=== PATIENT | female | born 1970 | race Caucasian/White ===

== ENCOUNTER 2017-03-29 09:44 | Emergency (ER) | payer BC ==
--- NOTE | ~2017-03-29 | ER ---
[facility]GE[facility] 46 Y [address] ROOM: [place] [address] LOCATION: ED ADMIT DATE: 03/29/2017 ER/Outpatient Report DISCHARGE DATE: 03/29/2017 FAMILY PHYSICIAN: Sven Chan MD ATTENDING PHYSICIAN: Jared Iqbal TIME OF ARRIVAL: 0944 hours. TIME OF EVALUATION: 1000 hours. CHIEF COMPLAINT: Diarrhea. HISTORY OF PRESENT ILLNESS: The patient is a 46-year-old female who presents to the emergency department today with a chief complaint of diarrhea. It is started on 03/25. She does report she has been feeling dizzy since. She has had multiple watery stools. Denies any blood. She denies any recent antibiotic exposure. Denies any nausea or vomiting. Denies any fevers or chills. Does felt like she was lightheaded. She was started on Flagyl on Wednesday. No sick contacts. Does have a crampy type abdominal pain. Denies any urinary symptoms. No vaginal bleeding. No vaginal discharge. PAST MEDICAL HISTORY: None. PAST SURGICAL HISTORY: Tubal and neck fusion. SOCIAL HISTORY: The patient smokes a pack every 3 days. Denies any alcohol or illicit drug use. ALLERGIES: NO KNOWN DRUG ALLERGIES. MEDICATIONS: Please see list. PRIMARY CARE DOCTOR: Sven Chan MD REVIEW OF SYSTEMS: [facility]GE: 46 Y [address] ROOM: [place] [address] LOCATION: [facility] ADMIT DATE: 03/29/2017 ER/Outpatient Report DISCHARGE DATE: 03/29/2017 FAMILY PHYSICIAN: Sven Chan MD ATTENDING PHYSICIAN: Jared Iqbal All systems are reviewed by myself and negative with the exception of those discussed in HPI and past medical history. PHYSICAL EXAMINATION: VITAL SIGNS: Weight 55.8 kg, blood pressure 140/77, pulse 85, respiratory rate 20, temperature 97.4, oxygen saturation 97% on room air. GENERAL: The patient is a 46-year-old female, appears in stated age, in no acute distress at this time. HEENT: Head normocephalic, atraumatic. Pupils are equal, round, and reactive to light. Mucous membranes are moist. NECK: Supple. There is no nuchal rigidity. CARDIOVASCULAR: Regular rate and rhythm. No murmurs, rubs, or gallops. LUNGS: Clear to auscultation bilaterally. No wheezes, rales, or rhonchi. ABDOMEN: Soft, nontender, and nondistended. No rebound, rigidity, or guarding. MUSCULOSKELETAL: The patient moves all 4 extremities. SKIN: Warm and dry. LABORATORY DATA AND X-RAYS: CBC is unremarkable. CMP is unremarkable. Lactate is normal. LFTs normal. Lipase is normal. Fecal WBCs are negative. Occult blood is negative. Procalcitonin is negative. C diff is negative. Ova and parasites are negative. IMPRESSION: 1. Diarrheal illness. 2. Moderate dehydration. 4. Initial visit. EMERGENCY DEPARTMENT COURSE: The patient was brought back to the examination room. Seen and evaluated by myself. IV is established. Laboratory analysis and imaging are obtained as described above. The patient is given 2 L of normal saline IV. I have discussed results with the patient. I have reassessed the patient's abdominal exam. She continues to have a nonsurgical abdominal exam at this time. I do feel she is safe for outpatient evaluation and treatment. I have written a prescription for ciprofloxacin for home as well as Lomotil. I have discussed follow up with Dr. Chan in 2-3 days for re-evaluation. I have discussed return to care instructions including worsening symptoms or other concerns. Return to the emergency department as soon as possible. The patient agreeable without further questions. DISPOSITION: The patient discharged home in good condition. PATIENT'S NAME: [facility]E [facility] AGE: 46 Y [address] ROOM: [place], [place] [address] LOCATION: ED ADMIT DATE: 03/29/2017 ER/Outpatient Report DISCHARGE DATE: 03/29/2017 FAMILY PHYSICIAN: Sven Chan MD ATTENDING PHYSICIAN: Jared Iqbal DO TANVIR WARREN/coty /[id number] d: 03/29/17 1605 t: 03/30/17 0703, OUTPATIENT REPORT
[2017-03-29 10:48] LABS: BASOPHIL % 0.5 %; EOSINOPHIL # 0.1 K/uL (0.0-0.5); EOSINOPHIL % 0.7 %; HEMATOCRIT 43.7 % (33.0-46.0); HEMOGLOBIN 14.9 g/dL (10.0-15.0); IMMATURE GRANULOCYTE % 0.4 %; LYMPHOCYTE # 2.8 K/uL (0.8-4.0); LYMPHOCYTE % 36.8 %; MCH 31.7 pg (27.0-34.0); MCHC 34.1 gm/dL (32.0-36.5); MONOCYTE # 0.5 K/uL (0.0-1.0); MONOCYTE % 6.4 %; MPV 9.3 fl (9.4-12.4); NEUTROPHIL # (ANC) 4.1 K/uL (1.8-7.8); NEUTROPHIL % 55.2 %; NRBC % 0 /100WBC (0-0.00); PLATELET COUNT 279 K/uL (150-450); RDW-CV 12.7 % (11.9-14.6); WBC 7.5 K/uL (4.0-11.0)
[2017-03-29 11:07] LABS: ALBUMIN 3.8 gm/dL (3.5-5.0); ALK PHOS 68 IU/L (33-138); ALT 39 IU/L (12-78); ANION GAP 12.3 (10.0-19.0); AST 42 IU/L (10-40); BLOOD UREA NITROGEN 8 mg/dL (6-24); CALCIUM 8.8 mg/dL (8.5-10.5); CHLORIDE 108 mMol/L (96-110); CO2 22 mMol/L (22-32); CREATININE 0.9 mg/dL (0.5-1.1); ESTIMATED GFR (MDRD EQUATION) > 60; POTASSIUM 4.3 mMol/L (3.7-5.1); SODIUM 138 mMol/L (135-145); TOTAL BILIRUBIN 0.6 mg/dL (0.0-1.5); TOTAL PROTEIN 7.4 g/dL (6.0-8.4)
== END 2017-03-29 13:34 | disposition disaster alternative care site (69) ==
LOC: GMED 09:44
PROVIDERS: Emergency Medicine
DX: E86.0 Dehydration (principal); R19.7 Diarrhea, unspecified; F17.210 Nicotine dependence, cigarettes, uncomplicated; Z98.890 Other specified postprocedural states
CPT/HCPCS: J2270; J2405; J7030

== ENCOUNTER → 2017-05-13 | Outpatient (CLI) | payer BC | END | disposition disaster alternative care site (69) | LOC: GRAD 08:37 | DX: J33.8 Other polyp of sinus (principal) ==